=== PATIENT | female | born 1985 | race Caucasian/White ===

== ENCOUNTER 2021-06-26 08:33 | Emergency (ER) | payer OTHER ==
[2021-06-26 10:34] LABS: BASOPHIL 0.1 % (0-2); EOSINOPHIL 0 % (0-5); HCT 41.9 % (37.0-47.0); HGB 14.3 g/dl (12.5-16.0); LYMPHOCYTE 14.2 % (15-48); MCH 31.3 pg (25.0-31.0); MCHC 34.1 g/dL (32.0-36.0); MCV 91.7 fL (78.0-100.0); MONOCYTE 3.2 % (0-12); MPV 10.2 fL (6.0-9.5); NEUTROPHIL 82.1 % (41-80); NRBC 0; PLT 285 K/uL (150-400); RBC 4.57 M/uL (4.20-5.40); WBC 13.9 K/uL (4.0-10.5)
[2021-06-26 11:05] LABS: ALBUMIN 4.4 g/dL (3.4-5.0); ALKALINE PHOSHATASE 52 U/L (46-116); ALT 44 U/L (14-59); AST 11 U/L (15-37); BILIRUBIN - TOTAL 0.3 mg/dL (0.2-1.0); BUN 8 mg/dL (7-18); BUN/CREAT RATIO (CALC) 14.3 RATIO; CHLORIDE 103 mmol/L (98-107); CO2 (BICARBONATE) 24 mmol/L (21-32); CREATININE 0.56 mg/dL (0.51-0.95); GLOBULIN (CALCULATION) 3.4 g/dL; GLUCOSE 120 mg/dL (74-106); MAGNESIUM 1.7 mg/dL (1.8-2.4); POTASSIUM 3.9 mmol/L (3.5-5.1); TOTAL PROTEIN 7.8 g/dL (6.4-8.2)
[2021-06-26 11:11] LABS: CORONAVIRUS 2019 SARS-COV-2 NEGATIVE (NEGATIVE); INFLUENZA A NAA NEGATIVE (NEGATIVE)
[2021-06-26 11:12] LABS: C-REACTIVE PROTEIN < 0.20 mg/dL (<=0.90)
[2021-06-26] MEDS ORDERED: PREDNISONE 20MG20 MG PO (13:12)
[2021-06-26] MEDS ORDERED: VIBRAMYCIN100 MG PO (13:12)
[2021-06-26] MEDS ORDERED: NEBULIZER UNIT NEB (13:12)
[2021-06-26] MEDS ORDERED: VENTOLIN (2.5 MG/3 M INH (13:12)
[2021-06-26] MEDS ORDERED: VENTOLIN HFA18 GM INH (13:12)
== END 2021-06-26 13:35 | disposition home or self-care (01) ==
LOC: FER 08:33
PROVIDERS: Emergency Medicine
DX: J45.901 Unspecified asthma with (acute) exacerbation (principal); F17.210 Nicotine dependence, cigarettes, uncomplicated; Z20.822 Contact with and (suspected) exposure to COVID-19
CPT/HCPCS: 36415; 71046; 80053; 82728; 83735; 83880; 84145; 85025; 86140; 94640; 94664; J2930; U0002